=== PATIENT | female | born 1960 | race Caucasian/White ===

== ENCOUNTER 2017-01-14 09:23 | Outpatient (CLI) | payer BC ==
--- NOTE | 2017-01-14 10:06 | Mammography Report ---
BILATERAL MAMMOGRAM with CAD: HISTORY:Cancer screening. No prior studies are available. FINDINGS: The breasts are almost entirely fat (<25% glandular). No mass, distortion, suspicious calcification, or skin change is seen. IMPRESSION: Negative mammogram. There is no mammographic evidence of malignancy. RECOMMENDATION: Follow-up per ACS guidelines. BI-RADS CATEGORY: 1 = Negative ACR BI-RADS MAMMOGRAPHIC CODES: 0 = Needs additional imaging evaluation; 1 = Negative; 2 = Benign; 3 = Probably benign; 4 = Suspicious; 5 = Malignant; 6 = Known biopsy-proven malignancy COMMENT: 1. Dense breast tissue, i.e., adenosis, fibrocystic changes, etc., may obscure an underlying neoplasm. 2. Approximately 10% of cancers are not detected with mammography. 3. A negative mammography report should not delay biopsy if a clinically suspicious mass is present. COMMENT: Patient follow-up letters are generated in [employer].
== END 2017-01-14 09:24 | disposition home or self-care (01) ==
LOC: MAMMO 09:23
PROVIDERS: ATTEND Nurse Practitioner Gerontology
DX: Z12.31 Encounter for screening mammogram for malignant neoplasm of breast (principal)
CPT/HCPCS: 77067; G0202

== ENCOUNTER 2021-03-11 17:12 | Emergency (ER) | payer SELFPAY ==
[2021-03-11 17:29] VITALS: BP 154/89
[2021-03-11] MEDS ORDERED: dexAMETHasone 20 MG/5 ML VIAL IV ONE (17:55)
[2021-03-11] MEDS ORDERED: ALBUTEROL 2.5 MG/3 ML NEBU IH ONE (17:55)
[2021-03-11] MEDS ORDERED: IPRATROPIUM 0.02% NEBU 2.5 ML IH ONE (17:55)
--- NOTE | 2021-03-11 18:06 | Emergency Department Report ---
- General Chief Complaint: Chest Pain Stated Complaint: CHEST PAIN, FLU LIKE SYMPTOMS, CONGESTION Time Seen by Provider: 03/11/21 17:55 Source: patient Mode of arrival: Ambulatory Limitations: No Limitations - History of Present Illness Initial Comments: Patient is a 60 -year-old female presents emergency room complaints of "flu like symptoms" that began 2 days ago. She has associated cough, chest congestion, chest tightness, shortness of breath, chills, body aches. She denies any fever, vomiting, diarrhea, abdominal pain. 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 She states that she received 2 doses of the CovinTarvo vaccine and reports that she received the Pfizer vaccine. Past medical history of hypertension. No allergies to medications. She is a non-smoker. She states that she has been taking Mucinex and TheraFlu without much relief. - Related Data Previous Rx's Medication Instructions Recorded Last Taken Type Albuterol Sulfate [Proventil Hfa] 1 - 2 puff IH TID PRN #1 hfa.aer.ad 03/11/21 Unknown Rx Benzonatate [Tessalon Perles] 100 mg PO Q8HR PRN #12 capsule 03/11/21 Unknown Rx Promethazine /Codeine 5 ml PO Q6H PRN #50 ml 03/11/21 Unknown Rx [Phenergan/Codeine 6.25-10 mg/5Ml] predniSONE [Deltasone] 40 mg PO QDAY 5 Days #10 tab 03/11/21 Unknown Rx Allergies Allergy/AdvReac Type Severity Reaction Status Date / Time No Known Allergies Allergy Unverified 01/14/17 09:23 ED Review of Systems ROS: Stated complaint: CHEST PAIN, FLU LIKE SYMPTOMS, CONGESTION Other details as noted in HPI Comment: All other systems reviewed and negative ED Past Medical Hx - Past Medical History Previous Medical History?: Yes Hx Hypertension: Yes - Surgical History Past Surgical History?: Yes Additional Surgical History: - Medications Home Medications: Home Medications Medication Instructions Recorded Confirmed Last Taken Type Albuterol Sulfate [Proventil Hfa] 1 - 2 puff IH TID PRN #1 hfa.aer.ad 03/11/21 Unknown Rx Benzonatate [Tessalon Perles] 100 mg PO Q8HR PRN #12 capsule 03/11/21 Unknown Rx Promethazine /Codeine 5 ml PO Q6H PRN #50 ml 03/11/21 Unknown Rx [Phenergan/Codeine 6.25-10 mg/5Ml] predniSONE [Deltasone] 40 mg PO QDAY 5 Days #10 tab 03/11/21 Unknown Rx ED Physical Exam - General Limitations: No Limitations General appearance: alert, in no apparent distress - Head Head exam: Present: atraumatic, normocephalic - Eye Eye exam: Present: normal appearance - ENT ENT exam: Present: mucous membranes moist - Respiratory Respiratory exam: Present: wheezes (bilaterally expiratory ), decreased breath sounds, prolonged expiratory. Absent: respiratory distress, rales, rhonchi, stridor, chest wall tenderness, accessory muscle use - Cardiovascular Cardiovascular Exam: Present: regular rate, normal rhythm, normal heart sounds. Absent: systolic murmur, diastolic murmur, rubs, gallop - Neurological Exam Neurological exam: Present: alert, oriented X3 - Psychiatric Psychiatric exam: Present: normal affect, normal mood - Skin Skin exam: Present: warm, dry, intact ED Course Vital Signs 03/11/21 17:28 Temperature 98.2 F Pulse Rate 78 Respiratory 20 Rate Blood Pressure 154/89 [Right] O2 Sat by Pulse 95 Oximetry ED Medical Decision Making - Radiology Data Radiology results: report reviewed Ordering Physician: MARYBEL RAE Date of Service: 03/11/21 Procedure(s): XR chest routine 2V Accession Number(s): [id number] cc: MARYBEL RAE Fluoro Time In Minutes: CHEST 2 VIEWS INDICATION: cough, wheezing, SOB. COMPARISON: 02/06/2018 FINDINGS: Support devices: None. Heart: Within normal limits. Lungs/Pleura: No acute air space or interstitial disease. No significant pleural effusion. IMPRESSION: No acute findings. Signer Name: Ronny Gallegos MD Signed: 03/11/2021 6:23 PM Workstation Name: [id number] Transcribed By: ES Dictated By: Ronny Gallegos MD Electronically Authenticated By: Ronny Gallegos MD Signed Date/Time: 03/11/211822 DD/ 21 TD/TT: - Medical Decision Making Patient is a 60 -year-old female presents emergency room complaints of "flu like symptoms" that began 2 days ago. She has associated cough, chest congestion, chest tightness, shortness of breath, chills, body aches. She denies any fever, vomiting, diarrhea, abdominal pain. 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 She states that she received 2 doses of the Covid vaccine and reports that she received the Pfizer vaccine. Past medical history of hypertension. No allergies to medications. She is a non-smoker. She states that she has been taking Mucinex and TheraFlu without much relief. Vitals are stable. Patient has no hypoxia. On exam patient has expiratory wheezing bilaterally, no rales, no rhonchi, no respiratory distress, no accessory muscle use. Chest x-ray: IMPRESSION: No acute findings. Patient given steroids IM and nebulizer treatment while in the emergency department with improvement of her symptoms, wheezing has improved. Symptoms likely related to viral bronchitis. Patient given prescription for medications. Advised patient Please take medication as prescribed. Increase your fluid intake. Follow-up with your primary care doctor for reexamination. Return to emergency room for any new or worsening symptoms. Critical care attestation.: If time is entered above; I have spent that time in minutes in the direct care of this critically ill patient, excluding procedure time. ED Disposition Clinical Impression: Acute bronchitis Qualifiers: Bronchitis organism: unspecified organism Qualified Code(s): J20.9 - Acute bronchitis, unspecified Disposition: DC-01 TO HOME OR SELFCARE Is pt being admited?: No Does the pt Need Aspirin: No Condition: Stable Instructions: Acute Bronchitis, Adult, [id number], Acute Bronchitis (ED) Additional Instructions: Please take medication as prescribed. Increase your fluid intake. Follow-up with your primary care doctor for reexamination. Return to emergency room for any new or worsening symptoms. Prescriptions: predniSONE [Deltasone] 40 mg PO QDAY 5 Days #10 tab Promethazine /Codeine [Phenergan/Codeine 6.25-10 mg/5Ml] 5 ml PO Q6H PRN #50 ml PRN Reason: cough Albuterol Sulfate [Proventil Hfa] 1 - 2 puff IH TID PRN #1 hfa.aer.ad PRN Reason: shortness of breath/wheezing Benzonatate [Tessalon Perles] 100 mg PO Q8HR PRN #12 capsule PRN Reason: cough Referrals: PRIMARY CARE,MD [Primary Care Provider] - 2-3 Days Time of Disposition: 19:19 Print Language: VIETNAMESE
--- NOTE | 2021-03-11 18:27 | XRay Report ---
CHEST 2 VIEWS INDICATION: cough, wheezing, SOB. COMPARISON: 02/06/2018 FINDINGS: Support devices: None. Heart: Within normal limits. Lungs/Pleura: No acute air space or interstitial disease. No significant pleural effusion. IMPRESSION: No acute findings. Signer Name: Ronny Gallegos MD Signed: 03/11/2021 6:23 PM Workstation Name: [id number]
== END 2021-03-11 19:40 | disposition home or self-care (01) ==
LOC: ED 17:12
DX: J20.9 Acute bronchitis, unspecified (principal); I10 Essential (primary) hypertension; Z79.899 Other long term (current) drug therapy; Z98.890 Other specified postprocedural states
CPT/HCPCS: 71046; 94640; 96374; 99283; J1100

== ENCOUNTER 2021-03-15 18:55 | Emergency (ER) | payer BC ==
[2021-03-15 19:19] VITALS: BP 139/87
[2021-03-15] MEDS ORDERED: ALBUTEROL 2.5 MG/3 ML NEBU IH ONE (20:02)
[2021-03-15] MEDS ORDERED: methylPREDNISolone Sod Succinate 125 MG/2 ML INJ IM ONE (20:02)
[2021-03-15] MEDS ORDERED: IPRATROPIUM 0.02% NEBU 2.5 ML IH ONE (20:02)
--- NOTE | 2021-03-15 20:57 | XRay Report ---
CHEST 2 VIEWS INDICATION / CLINICAL INFORMATION: COUGH, DYSPNEA. COMPARISON: 03/11/2021, 02/06/2018 FINDINGS: SUPPORT DEVICES: None. HEART / MEDIASTINUM: No significant abnormality. LUNGS / PLEURA: No significant pulmonary or pleural abnormality. No pneumothorax. ADDITIONAL FINDINGS: No significant additional findings. IMPRESSION: 1. No acute findings. No interval change. Signer Name: Suzan Escamilla MD Signed: 03/15/2021 8:53 PM Workstation Name: [id number]
--- NOTE | 2021-03-15 23:36 | Emergency Department Report ---
- General Chief Complaint: Upper Respiratory Infection Stated Complaint: CHEST CONGESTION, SWEAT SPELLS, ACHES AND PAINS Source: patient Mode of arrival: Ambulatory Limitations: No Limitations - History of Present Illness Initial Comments: Patient is a 60-year-old female with a history of hypertension and morbid obesity presents to the ED with complaint of acute onset persistent nasal and sinus congestion, frontal sinus pressure, persistent dry cough and wheezing and shortness of breath for the last 2 weeks, worse in the last 5 days. Patient states that she was initially evaluated in this ED about a week ago and was discharged home on albuterol inhaler, oral steroids and Tessalon Perles and despite taking these medications her symptoms got worse. Patient denies chest pain, dizziness, syncope, fever, chills, sore throat, abdominal pain, diaphoresis, headache, lightheadedness or palpitations. MD Complaint: cough, rhinorrhea, nasal congestion, sinus pain, other -: Sudden, week(s) (2) Severity: moderate Severity scale (0 -10): 5 Quality: aching Consistency: constant Improves With: nothing Worsens With: nothing Context: sick contacts Associated Symptoms: denies other symptoms, headache, rhinorrhea, nasal congestion, cough, shortness of breath, hoarseness. denies: fever, chills, myalgias, diaphoresis, sore throat, abdominal pain, nausea, vomiting, diarrhea, dysuria, rash, right sweats, weight loss, epistaxis, ear pain Treatments Prior to Arrival: "cold medicine" - Related Data Previous Rx's Medication Instructions Recorded Last Taken Type Albuterol Sulfate [Proventil Hfa] 1 - 2 puff IH TID PRN #1 hfa.aer.ad 03/11/21 Unknown Rx Benzonatate [Tessalon Perles] 100 mg PO Q8HR PRN #12 capsule 03/11/21 Unknown Rx predniSONE [Deltasone] 40 mg PO QDAY 5 Days #10 tab 03/11/21 Unknown Rx Azithromycin [Zithromax Z-USHA] 250 mg PO DAILY #6 tablet 03/15/21 Unknown Rx Cetirizine HCl [Zyrtec 10mg tab] 10 mg PO DAILY #30 tablet 03/15/21 Unknown Rx Promethazine /Codeine 5 ml PO Q6H PRN #120 ml 03/15/21 Unknown Rx [Phenergan/Codeine 6.25-10 mg/5 ml] Allergies Allergy/AdvReac Type Severity Reaction Status Date / Time No Known Allergies Allergy Unverified 01/14/17 09:23 ED Review of Systems ROS: Stated complaint: CHEST CONGESTION, SWEAT SPELLS, ACHES AND PAINS Other details as noted in HPI Constitutional: denies: chills, fever Eyes: denies: eye pain, eye discharge, vision change ENT: congestion. denies: ear pain, throat pain Respiratory: cough, wheezing. denies: shortness of breath Cardiovascular: denies: chest pain, palpitations Endocrine: no symptoms reported Gastrointestinal: denies: abdominal pain, nausea, vomiting, diarrhea, hematochezia Genitourinary: denies: urgency, dysuria, discharge Musculoskeletal: denies: back pain, joint swelling, arthralgia Skin: denies: rash, lesions Neurological: headache. denies: weakness, paresthesias Psychiatric: denies: anxiety, depression Hematological/Lymphatic: denies: easy bleeding, easy bruising ED Past Medical Hx - Past Medical History Previous Medical History?: Yes Hx Hypertension: Yes - Surgical History Past Surgical History?: Yes Additional Surgical History: - Medications Home Medications: Home Medications Medication Instructions Recorded Confirmed Last Taken Type Albuterol Sulfate [Proventil Hfa] 1 - 2 puff IH TID PRN #1 hfa.aer.ad 03/11/21 Unknown Rx Benzonatate [Tessalon Perles] 100 mg PO Q8HR PRN #12 capsule 03/11/21 Unknown Rx predniSONE [Deltasone] 40 mg PO QDAY 5 Days #10 tab 03/11/21 Unknown Rx Azithromycin [Zithromax Z-USHA] 250 mg PO DAILY #6 tablet 03/15/21 Unknown Rx Cetirizine HCl [Zyrtec 10mg tab] 10 mg PO DAILY #30 tablet 03/15/21 Unknown Rx Promethazine /Codeine 5 ml PO Q6H PRN #120 ml 03/15/21 Unknown Rx [Phenergan/Codeine 6.25-10 mg/5 ml] ED Physical Exam - General Limitations: No Limitations General appearance: alert, in no apparent distress - Head Head exam: Present: atraumatic, normocephalic, normal inspection - Eye Eye exam: Present: normal appearance, PERRL, EOMI Pupils: Present: normal accommodation - ENT ENT exam: Present: normal orophraynx, mucous membranes moist, normal external ear exam, other (Grossly congested nasal passages) - Neck Neck exam: Present: normal inspection, full ROM - Respiratory Respiratory exam: Present: wheezes (Mildly diffuse coarse wheezes throughout). Absent: respiratory distress, rales, rhonchi, chest wall tenderness, accessory muscle use, decreased breath sounds, prolonged expiratory - Cardiovascular Cardiovascular Exam: Present: regular rate, normal rhythm, normal heart sounds. Absent: systolic murmur, diastolic murmur, rubs, gallop - GI/Abdominal GI/Abdominal exam: Present: soft, normal bowel sounds. Absent: tenderness, guarding, rebound, hyperactive bowel sounds, hypoactive bowel sounds, mass - Extremities Exam Extremities exam: Present: normal inspection, full ROM, normal capillary refill - Back Exam Back exam: Present: normal inspection, full ROM. Absent: tenderness, CVA tenderness (R), CVA tenderness (L), muscle spasm, paraspinal tenderness, vertebral tenderness - Neurological Exam Neurological exam: Present: alert, oriented X3, CN II-XII intact, normal gait, reflexes normal - Psychiatric Psychiatric exam: Present: normal affect, normal mood - Skin Skin exam: Present: warm, dry, intact, normal color. Absent: rash ED Course Vital Signs 03/15/21 03/15/21 19:18 20:17 Temperature 98.8 F Pulse Rate 95 H Pulse Rate [ 78 Throughout] Respiratory 16 Rate Respiratory 20 Rate [ Throughout] Blood Pressure 139/87 [Right] O2 Sat by Pulse 95 Oximetry ED Medical Decision Making - Radiology Data Radiology results: report reviewed, image reviewed [facility] [address] [place] [address] XRay Report Signed Patient: MELA RIOS MR# : [id number] : 1960 Acct:[id number] Age/Sex: 60 / F ADM Date: 03/15/21 Loc: ED Attending Dr: Ordering Physician: MARYBEL JUSTIN Date of Service: 03/15/21 Procedure(s): XR chest routine 2V Accession Number(s): [id number] cc: MARYBEL JUSTIN Fluoro Time In Minutes: CHEST 2 VIEWS INDICATION / CLINICAL INFORMATION: COUGH, DYSPNEA. COMPARISON: 03/11/2021, 02/06/2018 FINDINGS: SUPPORT DEVICES: None. HEART / MEDIASTINUM: No significant abnormality. LUNGS / PLEURA: No significant pulmonary or pleural abnormality. No pneumothorax. ADDITIONAL FINDINGS: No significant additional findings. IMPRESSION: 1. No acute findings. No interval change. Signer Name: Suzan Escamilla MD Signed: 03/15/2021 8:53 PM Workstation Name: [id number] Transcribed By: JR Dictated By: Suzan Escamilla MD Electronically Authenticated By: Suzan Escamilla MD Signed Date/Time: 03/15/212052 DD/ 51 TD/TT: - Medical Decision Making This is a 60-year-old female with a history of hypertension and morbid obesity presents to the ED with complaint of acute onset persistent nasal and sinus congestion, frontal sinus pressure, persistent dry cough and wheezing and shortness of breath for the last 2 weeks, worse in the last 5 days. Patient states that she was initially evaluated in this ED about a week ago and was discharged home on albuterol inhaler, oral steroids and Tessalon Perles and despite taking these medications her symptoms got worse. In the ED, patient is alert and oriented x3 and is not in any distress. Patient is hemodynamically stable. Chest x-ray shows no acute cardiopulmonary abnormalities or pneumonitis. In the ED, patient was treated with a DuoNeb and Solu-Medrol. On reevaluation, patient's wheezing resolved with medications. Patient was discharged home on medications and advised follow-up with her primary care p marixa in 5 to 7 days for reevaluation or return to the ED immediately if symptoms get worse. - Differential Diagnosis Bronchitis; Pneumonia; URI; Sinusitis Critical care attestation.: If time is entered above; I have spent that time in minutes in the direct care of this critically ill patient, excluding procedure time. ED Disposition Clinical Impression: Acute upper respiratory infection, Acute bacterial sinusitis, Acute bacterial bronchitis Disposition: DC-01 TO HOME OR SELFCARE Is pt being admited?: No Does the pt Need Aspirin: No Condition: Stable Instructions: Acute Bronchitis (ED), Sinusitis, Adult, [id number], Upper Respiratory Infection, Adult, [id number], Acute Bronchitis, Adult, [id number] Additional Instructions: Chest x-ray shows no acute cardiopulmonary abnormalities. Your symptoms are likely due to persistent sinus infection due to your upper respiratory infection. Take medication with food, drink plenty of fluids and follow-up with your primary care physician in 5 to 7 days for reevaluation. Return to the ED immediately if symptoms get worse. Prescriptions: Promethazine /Codeine [Phenergan/Codeine 6.25-10 mg/5 ml] 5 ml PO Q6H PRN #120 ml PRN Reason: cough Azithromycin [Zithromax Z-USHA] 250 mg PO DAILY #6 tablet Cetirizine HCl [Zyrtec 10mg tab] 10 mg PO DAILY #30 tablet Referrals: [facility] [Provider Group] - 3-5 Days Time of Disposition: 23:41 Print Language: NIGERIAN
== END 2021-03-15 19:18 | disposition home or self-care (01) ==
LOC: ED 18:55
DX: J20.9 Acute bronchitis, unspecified (principal); J01.90 Acute sinusitis, unspecified; B96.89 Other specified bacterial agents as the cause of diseases classified elsewhere; I10 Essential (primary) hypertension
CPT/HCPCS: 71046; 94644; 96372; 99283; J2930